=== PATIENT | male | born 1945 | race Caucasian/White ===

== ENCOUNTER → 2017-04-23 | Outpatient (CLI) | payer BC ==
[~2017-04-23] MED LIST: ALIS150T PO; ALLP300T PO; AMIT150T PO; AMLO1CAP PO; CLON1TAB3 PO; GMFB600T PO; LYCO15CA PO; MULT1CAP27 PO; NEBI2.5T5 PO; OMEG1CAP58 PO
== END ==
LOC: CARD 10:13
PROVIDERS: ATTEND Internal Medicine Interventional Cardiology
DX: R00.1 Bradycardia, unspecified (principal); G30.9 Alzheimer's disease, unspecified
CPT/HCPCS: 93306

== ENCOUNTER 2017-05-18 08:30 | Outpatient (RCR) | payer BC | END 2017-07-23 | disposition home or self-care (01) | LOC: CARD 08:30 | PROVIDERS: ATTEND Internal Medicine Interventional Cardiology | DX: R00.1 Bradycardia, unspecified (principal); G30.9 Alzheimer's disease, unspecified; F02.80 Dementia in other diseases classified elsewhere, unspecified severity, without behavioral disturbance, psychotic disturbance, mood disturbance, and anxiety | CPT/HCPCS: 93270 ==